=== PATIENT | female | born 2005 | race Caucasian/White ===

== ENCOUNTER → 2024-06-19 | Day surgery (SDC) | payer OTHER ==
--- NOTE | 2024-06-19 10:52 | RAD REPORT ---
Exam: US Breast Core BX w/US Guidance CLINICAL HISTORY: N63.13 TECHNIQUE: The risks, benefits and alternatives to procedure were explained to the patient and informed consent was obtained. Prior ultrasound was reviewed. Timeout procedure was performed. Skin was prepped and draped in the usual sterile fashion. Skin and deeper tissues were anesthetized w ith lidocaine. Under sonographic guidance three 14-gauge vacuum-assisted core biopsies of the breast mass were obtai anthony. The specimens were sent to pathology for analysis. Subsequently a localizing clip was placed into the mass. Pressure was applied to the biopsy site. Patient experienced no immediate complication. IMPRESSION: Technically successful ultrasound-guided core biopsy of the right breast.
== END ==
LOC: DS 08:00
PROVIDERS: ATTEND Obstetrics & Gynecology
DX: D24.1 Benign neoplasm of right breast (principal)
CPT/HCPCS: 19083; 88305